=== PATIENT | male | born 1970 | race Caucasian/White ===

== ENCOUNTER → 2017-09-05 | Outpatient (CLI) | payer BC | LOC: FIMAGING 16:13 | PROVIDERS: ATTEND Family Medicine | DX: Z13.83 Encounter for screening for respiratory disorder NEC (principal); L97.529 Non-pressure chronic ulcer of other part of left foot with unspecified severity; F17.200 Nicotine dependence, unspecified, uncomplicated ==

== ENCOUNTER → 2017-09-13 | Outpatient (CLI) | payer BC ==
[~2017-09-13] MED LIST: IOPAMIDOL (ISOVUE 370) 100 ML BTL IV ONE
== END ==
LOC: FIMAGING 15:08
PROVIDERS: ATTEND Surgery
DX: I77.1 Stricture of artery (principal); L97.529 Non-pressure chronic ulcer of other part of left foot with unspecified severity
CPT/HCPCS: Q9967

== ENCOUNTER 2017-09-20 05:53 | Day surgery (SDC) | payer BC ==
[2017-09-20] MEDS ORDERED: DIAZEPAM 5 MG TAB PO ONE (06:05)
[2017-09-20] MEDS ORDERED: FAMOTIDINE 20 MG TAB PO ONE (06:05)
[2017-09-20] MEDS ORDERED: NS 1,000 ML IV ONE (06:05)
[2017-09-20] MEDS ORDERED: ASPIRIN EC 325 MG TAB PO ONE (06:05)
[2017-09-20] MEDS ORDERED: diphenhydrAMINE 25 MG CAP PO ONE (06:05)
--- NOTE | 2017-09-20 06:38 | CPEKG ---
Heart Rate: 73 RR Interval: 822 P-R Interval: 168 QRSD Interval: 76 QT Interval: 396 QTC Interval: 437 P [place]: 31 QRS [place]: 66 T Wave [place]: 67 EKG Severity - NORMAL ECG - EKG Impression: SINUS RHYTHM Electronically Signed By: Herb Meier 21-Sep-2017 08:49:00
[2017-09-20] MEDS ORDERED: CLOPIDOGREL BISULFATE 75 MG TAB PO ONE (06:45)
[2017-09-20 06:52] LABS: PLATELET COUNT 263 10^3/uL (150-400)
[2017-09-20 07:01] LABS: INR 1.03 (0.83-1.16); PROTIME(PATIENT) 13.7 SEC (12.0-15.0)
[2017-09-20] MEDS ORDERED: LIDOCAINE 1% 300 MG/30 ML SDV ONE (07:03)
[2017-09-20] MEDS ORDERED: MIDAZOLAM 2 MG/2 ML VIAL ONE ×3 (07:03→09:18)
[2017-09-20] MEDS ORDERED: fentaNYL 100 MCG/2 ML INJ ONE ×4 (07:03→09:08)
[2017-09-20] MEDS ORDERED: IOPAMIDOL (ISOVUE-300) 150 ML BTL ONE (07:04)
--- NOTE | 2017-09-20 07:11 | PDPROPOC ---
Sedation Plan of Care Sedation Plan of Care: mental status noted, patient educated of risks, benefits , alternatives, patient can tolerate sedation ASA Classification: ASA 2 Planned drugs: fentanyl, midazolam Mallampati Score: Class 2 Mallampati Reference Image: Patient passed 3-3-2 rule?: Yes
--- NOTE | 2017-09-20 07:11 | PDHPUP ---
History & Physical Update H&P update statement: This history and physical update is based on an assessment of the patient which was completed after admission or registration (within 24 hours), but prior to the surgery/procedure. H&P update: H&P reviewed & patient examined, no change in patient's condition since H&P completed
[2017-09-20] MEDS ORDERED: HEPARIN 10,000 UNIT/10 ML MDV (1,000 UNIT/ML) ONE (07:30)
[2017-09-20] MEDS ORDERED: NITROGLYCERIN 1,500 MCG/15 ML VIAL MISC ONE (07:47)
[2017-09-20] MEDS ORDERED: NITROGLYCERIN 0.4 MG BTL SL PRN (09:08)
[2017-09-20] MEDS ORDERED: ATROPINE SULFATE 1 MG/10 ML SYR IVP PRN (09:08)
[2017-09-20] MEDS ORDERED: HYDROCODONE/APAP 5/325 TAB PO PRN (09:08)
[2017-09-20] MEDS ORDERED: OXYCODONE/APAP 5/325 TAB PO PRN (09:08)
[2017-09-20] MEDS ORDERED: ONDANSETRON 4 MG/2 ML VIAL IVP PRN (09:08)
[2017-09-20] MEDS ORDERED: fentaNYL 100 MCG/2 ML INJ IV ONE (09:30)
[2017-09-20] MEDS ORDERED: MIDAZOLAM 2 MG/2 ML VIAL IVP ONE ×2 (09:30)
--- NOTE | 2017-09-20 09:40 | CPIP ---
[f rep st] INVASIVE CARDIAC PROCEDURE DATE OF PROCEDURE: 09/20/2017 INDICATION FOR PROCEDURE: Nonhealing ulceration, left toe. PROCEDURE: 1. Nonselective right groin sheathogram. 2. Abdominal aortogram. 3. Selective catheter placement of left contralateral common femoral artery. 4. Runoff of left lower extremity. 5. Selective angiography of infrapopliteal vessels. 6. Attempted wiring of distal anterior tibial artery AGRICULTURAL PURCHASING AGENT. HISTORY: Briefly, this is a 47-year-old male with history of nonhealing ulceration of the left big t oe. The patient had CTA performed as an outpatient, which showed high-grade infrapopliteal/sub ankle level PAD. Given these findings, patient consented for invasive angiography to see if any increased flow could be increased to the left big toe. DESCRIPTION OF PROCEDURE: After informed consent, the patient was brought to [facility] where the right groin was prepped and draped in a sterile fashion. Using lidocaine, a short 6-Rober nch sheath was introduced into the right common femoral artery. Through the 6-Tunisian sheath, a unive rsal flush catheter was advanced to the descending aorta where abdominal aortogram showed, which show ed patent distal ascending aorta, patent bilateral common external and internal iliac arteries. Univ ersal flush catheter was then advanced to the left common femoral artery. Runoff of the left lower e xtremity was obtained which showed patent left common femoral artery, patent left profunda artery, pa tent left SFA, popliteal artery had 30% disease. Infrapopliteal artery angiography showed patent prox imal anterior tibial artery and peroneal artery. The posterior tibial artery appeared to be subtotal ly occluded from its proximal takeoff and was totally occluded through its entire run to the foot. T he peroneal artery was patent to the level of the ankle, which gave off collaterals, to give off spid er collaterals to both the posterior tibial artery and anterior tibial artery distribution. The anter ior tibial artery appeared to be 100% occluded at the level of the ankle. There did appear to be rec onstitution of this vessel distally which was a quite small vessel, but did appear to be in line with the anterior tibial artery. At this time, a universal flush catheter was removed, a 6-Tunisian sheath was removed. A 6-Tunisian 90 cm sheath was placed in the left popliteal artery and verified angiograp hically. Patient was administered 7000 heparin IV as well as Plavix p.o. Utilizing a Mcelroy ce PT wire and a Quick Cross catheter, the attempts were made to cross this distal AGRICULTURAL PURCHASING AGENT of the anterio r tibial artery at the level of the ankle. This wire was not successful, so was switched out for Con fianza Pro 12 wire which again did traverse slightly further into the level of the ankle in the foref oot with the Quick Cross support. This was then removed for a submersible pilot 150 wire. This did traverse dis tally and entered a distal vessel. However, it appeared that this wire did cross subintimally and th en pop into the true vessel distally by angiography. Given the fact that this wire was in the subint imal plane from the forefoot to the level of the collateralization, we decided that this would not re main patent if any BRAZING MACHINE SETTER was performed. The wire was removed and re-engaged. However, it would not en ter the true lumen to enter this vessel. At this time, we decided given the attempts of trying to op en this extremely distal AGRICULTURAL PURCHASING AGENT as well as the fact the patient does have significant spider collaterals from the peroneal arteries feeding the forefoot that he did have enough circulation at this point in time for any potential distal toe surgery. The catheter and the sheath were pulled back and exchang ed out for a short 6-Tunisian sheath. The patient tolerated the procedure well with no complications. IMPRESSION: High-grade sub ankle peripheral artery disease, mainly in the form of occluded posterior tibial artery and anterior tibial artery getting collateralizations from peroneal spider collaterals at the level of the forefoot to the level of the toes. PLAN: The patient will have the sheath discontinued when the ACT is less than 170. He will be disch arged home later this morning. He will follow up with Dr. Daigle's office. I will communicate with Tom Daigle this morning to relay the message of the patient's findings. /[id number]/MODL
== END 2017-09-20 14:00 | disposition home or self-care (01) ==
LOC: FCATH 05:53
PROVIDERS: ATTEND Internal Medicine Cardiovascular Disease
PROC: B41G1ZZ Fluoroscopy of Left Lower Extremity Arteries using Low Osmolar Contrast (ICD-10-PCS; principal; 2017-09-20)
PROC: 04HN33Z Insertion of Infusion Device into Left Popliteal Artery, Percutaneous Approach (ICD-10-PCS; principal; 2017-09-20)
DX: I74.3 Embolism and thrombosis of arteries of the lower extremities (principal); I73.9 Peripheral vascular disease, unspecified; L97.529 Non-pressure chronic ulcer of other part of left foot with unspecified severity; I10 Essential (primary) hypertension; G89.29 Other chronic pain; F17.210 Nicotine dependence, cigarettes, uncomplicated
CPT/HCPCS: 36247; 75710; 93005; C1769; C1887; J1644; J2250; J3010; Q9967

== ENCOUNTER 2017-10-14 08:07 | Day surgery (SDC) | payer BC ==
[~2017-10-14 08:07] MED LIST changes: +BUPIVACAINE 0.5% 30 ML SDV ONE; -IOPAMIDOL (ISOVUE 370) 100 ML BTL IV ONE; +ceFAZolin 2 GM/DEXTROSE 100 ML IV ONE; +ceFAZolin 2 GM/SWFI 2 GM/20 ML SYR IVP ONE
[2017-10-14] MEDS ORDERED: LR 1,000 ML IV ONE (08:29)
[2017-10-14] MEDS ORDERED: CEFAZOLIN 2 GM/DEXTROSE/100 ML BAG IV ONE (09:02)
--- NOTE | 2017-10-14 09:07 | PDANEPAE ---
ANE History of Present Illness 47 year old male w/ PMHx of PVD s/p Left LE angioplasty presents for left great toe amputation. ANE Past Medical History - Cardiovascular History Hx Hypertension: No Hx Arrhythmias: No Hx Chest Pain: No Hx Coronary Artery / Peripheral Vascular Disease: No Hx CHF / Valvular Disease: No Hx Palpitations: No - Pulmonary History Hx COPD: No Hx Asthma/Reactive Airway Disease: No Hx Recent Upper Respiratory Infection: No Hx Oxygen in Use at Home: No Hx Sleep Apnea: No Sleep Apnea Screening Result - Last Documented: Negative - Neurologic History Hx Cerebrovascular Accident: No Hx Seizures: No Hx Dementia: No - Endocrine History Hx Diabetes: No - Renal History Hx Renal Disorders: No - Liver History Hx Hepatic Disorders: No - Neurological & Psychiatric Hx Hx Neurological and Psychiatric Disorders: No - Cancer History Hx Cancer: No - Congenital Disorder History Hx Congenital Disorders: No - GI History Hx Gastrointestinal Disorders: No - Other Health History Other Health History: none - Chronic Pain History Chronic Pain: Yes (lower back) - Surgical History Prior Surgeries: interventional angioplasty of LLE ANE Review of Systems Review of Systems: - Exercise capacity Exercise capacity: <4 METS METS (RN): 3 METS - Systems Muscolosketal: Reports: other (foot pain / left great toe pain) ANE Patient History - Allergies Allergies/Adverse Reactions: No Known Allergies Allergy (Verified 10/12/17 16:40) - Home Medications Home Medications: Chantix 0.5MG (*) 09/20/17 [Last Taken 09/19/17 18:00] Nifedipine 09/20/17 [Last Taken 09/19/17 19:00] Oxycodone HCl 09/20/17 [Last Taken 09/19/17 18:00] - NPO status NPO Since - Liquids (Date): 10/13/17 NPO Since - Liquids (Time): 22:00 NPO Since - Solids (Date): 10/13/17 NPO Since - Solids (Time): 22:00 - Smoking Hx Smoking Status: Light smoker - Family Anes Hx Family Hx Anesthesia Complications: none ANE Labs/Vital Signs - Vital Signs Blood Pressure: 113/73 Heart Rate: 80 Respiratory Rate: 16 O2 Sat (%): 93 Height: 182.88 cm Weight: 81.647 kg
[2017-10-14] MEDS ORDERED: MIDAZOLAM 2 MG/2 ML VIAL IVP ONE (09:09)
--- NOTE | 2017-10-14 09:09 | PDANEPAE ---
ANE History of Present Illness 47 year old male for left great toe amputation. ANE Past Medical History - Cardiovascular History Hx Hypertension: No Hx Arrhythmias: No Hx Chest Pain: No Hx Coronary Artery / Peripheral Vascular Disease: No Hx CHF / Valvular Disease: No Hx Palpitations: No - Pulmonary History Hx COPD: No Hx Asthma/Reactive Airway Disease: No Hx Recent Upper Respiratory Infection: No Hx Oxygen in Use at Home: No Hx Sleep Apnea: No Sleep Apnea Screening Result - Last Documented: Negative - Neurologic History Hx Cerebrovascular Accident: No Hx Seizures: No Hx Dementia: No - Endocrine History Hx Diabetes: No - Renal History Hx Renal Disorders: No - Liver History Hx Hepatic Disorders: No - Neurological & Psychiatric Hx Hx Neurological and Psychiatric Disorders: No - Cancer History Hx Cancer: No - Congenital Disorder History Hx Congenital Disorders: No - GI History Hx Gastrointestinal Disorders: No - Other Health History Other Health History: none - Chronic Pain History Chronic Pain: Yes (lower back) - Surgical History Prior Surgeries: interventional angioplasty of LLE ANE Review of Systems Review of Systems: - Exercise capacity METS (RN): 3 METS ANE Patient History - Allergies Allergies/Adverse Reactions: No Known Allergies Allergy (Verified 10/12/17 16:40) - Home Medications Home medications: home medication list seen and reviewed Home Medications: Chantix 0.5MG (*) 09/20/17 [Last Taken 09/19/17 18:00] Nifedipine 09/20/17 [Last Taken 09/19/17 19:00] Oxycodone HCl 09/20/17 [Last Taken 09/19/17 18:00] - NPO status NPO Status: no food or drink >8 hours NPO Since - Liquids (Date): 10/13/17 NPO Since - Liquids (Time): 22:00 NPO Since - Solids (Date): 10/13/17 NPO Since - Solids (Time): 22:00 - Anes Hx Anes Hx: no prior problems - Smoking Hx Smoking Status: Light smoker Marijuana use: No - Alcohol Use Alcohol Use: None - Family Anes Hx Family Anes Hx: neg - N/A Family Hx Anesthesia Complications: none ANE Labs/Vital Signs - Vital Signs Vital Signs: reviewed preoperatively; see RN documention for details Blood Pressure: 113/73 Heart Rate: 80 Respiratory Rate: 16 O2 Sat (%): 93 Height: 182.88 cm Weight: 81.647 kg ANE Physical Exam - Airway Neck exam: FROM Mallampati Score: Class 1 Mouth exam: poor dentition, allen Mouth image: 1 - Rotten 2 - Rotten - Pulmonary Pulmonary: no respiratory distress - Cardiovascular Cardiovascular: regular rate and rhythym - ASA Status ASA Status: II ANE Anesthesia Plan Anesthesia Plan: GA w LMA Total IV Anesthesia: No
[2017-10-14] MEDS ORDERED: fentaNYL 100 MCG/2 ML INJ ONE (09:28)
[2017-10-14] MEDS ORDERED: PROPOFOL 200 MG/20 ML VIAL ONE (09:28)
[2017-10-14] MEDS ORDERED: fentaNYL 100 MCG/2 ML INJ IVP PRN (09:59)
[2017-10-14] MEDS ORDERED: ONDANSETRON 4 MG/2 ML VIAL IVP PRN (09:59)
[2017-10-14] MEDS ORDERED: LR 500 ML IV PRN (09:59)
[2017-10-14] MEDS ORDERED: HYDROmorphONE/DILAUDID 2 MG/ML INJ IVP PRN (09:59)
[2017-10-14] MEDS ORDERED: oxyCODONE IR 5 MG TAB PO PRN (09:59)
[2017-10-14] MEDS ORDERED: NALOXONE HCL 0.4 MG/ML INJ IVP PRN (09:59)
--- NOTE | 2017-10-14 10:23 | POSTOPPROG ---
Post Op Note Date of Operation: 10/14/17 Surgeon: Lorenza Daigle Anesthesiologist: wilder Anesthesia: GET(General Endotracheal) Pre-op Diagnosis: ulcer great toe pvd Post-op Diagnosis: same Indication: 47 yo with pvd and ulcer on great toe Procedure: amputation great toe Findings: necrotic toe Inf/Abcess present in the surg proc area at time of surgery?: No EBL: Minimal Specimen(s): toe for micro and path
[2017-10-14 12:36] VITALS: BP 107/68
--- NOTE | 2017-10-14 14:30 | POSTANESTH ---
Post Anesthetic Evaluation Cardiovascular Status: Normal, Stable, Similar to Pre-Op Cond Respiratory Status: Normal, Stable, Similar to Pre-op Cond. Level of Consciousness/Mental Status: Can Participate in Eval, Alert and Oriented Pain Control: Adequate, Prn Tx Ordered Nausea/Vomiting Control: Adequate, Prn Tx Ordered Complications Possibly Related to Anesthesia: None Noted
--- NOTE | 2017-10-15 10:37 | GOP ---
[f rep st] OPERATIVE REPORT DATE OF OPERATION: 10/14/2017 SURGEON: Lorenza Daigle MD ANESTHESIA: General. ANESTHESIOLOGIST: Timo Ames MD PREOPERATIVE DIAGNOSIS: Peripheral vascular disease and ulcer to great toe. POSTOPERATIVE DIAGNOSIS: Peripheral vascular disease and ulcer to great toe. PROCEDURE PERFORMED: Amputation left great toe. FINDINGS: Necrotic ulcer. SPECIMENS: Toe for microbiology and pathology. ESTIMATED BLOOD LOSS: Minimal. INDICATIONS: The patient is a 47-year-old man who developed an ulcer on his great toe. He had colla teral vessels to his foot, but no discrete runoff. He underwent angiography and the blood flow impro oliverio. We discussed about watchful waiting, but due to the pain in the toe, he opted for amputation. DESCRIPTION OF PROCEDURE: The patient was brought into the operating room, placed supine on the tabl e. General anesthesia was administered. His foot was prepped and draped in the usual sterile fashio n. I infiltrated all sites with 0.5% Marcaine prior to making incisions. I made an ellipse around t he ulcer. I disarticulated the distal phalanx and sent this to Pathology. Next, I removed tissue fr om the proximal phalanx and used a periosteal elevator to elevate it from the bone. I submitted a sa mple for microbiology and a final sample for pathology with the ink tiffany proximal. I softened the ed ges with a rasp. I closed the deep layer with 2-0 Vicryl. I closed the skin with 2-0 nylon. A wate rproof silver impregnated dressing was applied. He was then placed in a walking cast. He was awaken ed in the operating room, extubated, transferred to PACU in stable condition. /[id number]/MODL
== END 2017-10-14 12:57 | disposition home or self-care (01) ==
LOC: UNDOADMOB 08:07 → FSGY 08:07 → F3N 08:07 → EDSTATUS 09:45 → FSGY 12:57
PROVIDERS: ATTEND Surgery
PROC: 0Y6Q0Z0 Detachment at Left 1st Toe, Complete, Open Approach (ICD-10-PCS; principal; 2017-10-14 09:45)
DX: L97.529 Non-pressure chronic ulcer of other part of left foot with unspecified severity (principal); I73.9 Peripheral vascular disease, unspecified; G89.29 Other chronic pain; I10 Essential (primary) hypertension; F17.210 Nicotine dependence, cigarettes, uncomplicated
CPT/HCPCS: J0690; J2250; J2704; J3010

== ENCOUNTER → 2018-02-03 | Outpatient (CLI) | payer BC | LOC: FIMAGING 13:16 | PROVIDERS: ATTEND Surgery | DX: Z48.89 Encounter for other specified surgical aftercare (principal); Z89.422 Acquired absence of other left toe(s); M77.32 Calcaneal spur, left foot ==

== ENCOUNTER 2018-05-19 06:41 | Day surgery (SDC) | payer BC ==
[2018-05-19] MEDS ORDERED: ceFAZolin 2 GM/DEXTROSE 100 ML IV ONE (07:01)
[2018-05-19] MEDS ORDERED: LR 1,000 ML IV ONE (07:02)
[2018-05-19] MEDS ORDERED: fentaNYL 100 MCG/2 ML INJ IVP ONE (07:45)
[2018-05-19] MEDS ORDERED: BUPIVACAINE 0.5% 30 ML SDV ONE (08:06)
[2018-05-19] MEDS ORDERED: MIDAZOLAM 2 MG/2 ML VIAL IVP ONE (08:08)
--- NOTE | 2018-05-19 08:08 | PDANEPAE ---
ANE History of Present Illness PVD and gangrenous toes, here for removal of digits in affected foot on L side ANE Past Medical History - Cardiovascular History Hx Hypertension: No Hx Arrhythmias: No Hx Chest Pain: No Hx Coronary Artery / Peripheral Vascular Disease: Yes Hx CHF / Valvular Disease: No Hx Palpitations: No - Pulmonary History Hx COPD: No Hx Asthma/Reactive Airway Disease: No Hx Recent Upper Respiratory Infection: No Hx Oxygen in Use at Home: No Hx Sleep Apnea: No Sleep Apnea Screening Result - Last Documented: Negative Pulmonary History Comment: pt quit smoking @ 2 mths ago - Neurologic History Hx Cerebrovascular Accident: No Hx Seizures: No Hx Dementia: No - Endocrine History Hx Diabetes: No - Renal History Hx Renal Disorders: No - Liver History Hx Hepatic Disorders: No - Neurological & Psychiatric Hx Hx Neurological and Psychiatric Disorders: No - Cancer History Hx Cancer: No - Congenital Disorder History Hx Congenital Disorders: No - GI History Hx Gastrointestinal Disorders: No - Other Health History Other Health History: left toe not healing appropriately - Chronic Pain History Chronic Pain: Yes (lower back) - Surgical History Prior Surgeries: interventional angioplasty of LLE. 1 toe amputated 2017 ANE Review of Systems Review of Systems: - Exercise capacity METS (RN): 4 METS ANE Patient History - Allergies Allergies/Adverse Reactions: No Known Allergies Allergy (Verified 05/17/18 14:47) - Home Medications Home Medications: oxyCODONE IR [Oxycodone Ir (*)] 20 mg PO Q4-6PRN PRN #0 09/20/17 [Last Taken ] - NPO status NPO Since - Liquids (Date): 05/18/18 NPO Since - Liquids (Time): 23:00 NPO Since - Solids (Date): 05/18/18 NPO Since - Solids (Time): 23:00 - Smoking Hx Smoking Status: Light smoker - Family Anes Hx Family Hx Anesthesia Complications: none ANE Labs/Vital Signs - Vital Signs Blood Pressure: 128/83 Heart Rate: 99 Respiratory Rate: 18 O2 Sat (%): 95 Height: 182.88 cm Weight: 81.647 kg ANE Physical Exam - Airway Neck exam: FROM Mallampati Score: Class 1 Mouth exam: poor dentition - Pulmonary Pulmonary: no respiratory distress - Cardiovascular Cardiovascular: regular rate and rhythym - ASA Status ASA Status: II ANE Anesthesia Plan Anesthesia Plan: GA w LMA, GA with mask Total IV Anesthesia: Yes
[2018-05-19] MEDS ORDERED: MIDAZOLAM 2 MG/2 ML VIAL ONE ×2 (08:09→08:24)
[2018-05-19] MEDS ORDERED: LIDOCAINE 2% 5 ML SDV ONE (08:12)
[2018-05-19] MEDS ORDERED: fentaNYL 100 MCG/2 ML INJ ONE ×4 (08:12→09:51)
[2018-05-19] MEDS ORDERED: PROPOFOL/EMULSION 500 MG/50 ML BOTTLE IV ONE (08:12)
[2018-05-19] MEDS ORDERED: LIDOCAINE 1% 300 MG/30 ML SDV ONE (08:25)
[2018-05-19] MEDS ORDERED: ROPIVACAINE HCL 150 MG/30 ML INJ ONE (08:50)
[2018-05-19] MEDS ORDERED: LABETALOL HCL 5 MG/ML 20 ML MDV IVP PRN (08:54)
[2018-05-19] MEDS ORDERED: oxyCODONE IR 5 MG TAB PO ONE (08:54)
[2018-05-19] MEDS ORDERED: NALOXONE HCL 0.4 MG/ML INJ IVP PRN ×2 (08:54→10:09)
[2018-05-19] MEDS ORDERED: MEPERIDINE 25 MG/0.5 ML AMP IVP PRN (08:54)
[2018-05-19] MEDS ORDERED: ONDANSETRON 4 MG/2 ML VIAL IVP PRN ×2 (08:54→10:05)
[2018-05-19] MEDS ORDERED: DEXAMETHASONE 4 MG/ML VIAL IVP PRN (08:54)
--- NOTE | 2018-05-19 09:15 | POSTOPPROG ---
Post Op Note Date of Operation: 05/19/18 Surgeon: Lorenza Daigle Peeled Potato Inspector: Melinda Anesthesiologist: nena Anesthesia: GET(General Endotracheal) Pre-op Diagnosis: osteomyelitis, PVD Post-op Diagnosis: same Indication: 47yo M s/p L 1st toe amputation with nonhealing wound, osteo, and PVD Procedure: L TMA Findings: diminished blood supply Inf/Abcess present in the surg proc area at time of surgery?: Yes Depth: Organ Space (bone) EBL: Minimal Specimen(s): L forefoot -permanent L proximal metatarsal - micro
[2018-05-19] MEDS ORDERED: oxyCODONE IR 5 MG TAB ONE (09:36)
[2018-05-19] MEDS: fentaNYL 100 MCG/2 ML INJ IVP PRN ×4 (09:39→10:01)
--- NOTE | 2018-05-19 09:41 | GOP ---
DATE OF OPERATION: 05/19/2018 SURGEON: Lorenza Daigle MD HIGH SCHOOL ASSISTANT FOOTBALL COACH: Judy Lawrence, PAIGE ANESTHESIA: General with postoperative ankle block. ANESTHESIOLOGIST: Jamir Faria DO PREOPERATIVE DIAGNOSIS: Left great toe osteomyelitis and peripheral vascular disease. POSTOPERATIVE DIAGNOSIS: Left great toe osteomyelitis and peripheral vascular disease. PROCEDURE PERFORMED: Left transmetatarsal amputation. FINDINGS: bone exposed on great toe. digital arteries patent SPECIMENS: Left forefoot and left great toe for microbiology. ESTIMATED BLOOD LOSS: 20 cc. INDICATIONS: The patient is a 47-year-old man who has peripheral vascular disease. He had an angiogram performed to open up the blood vessels to his foot. We attempted an amputation of the great toe. He had poor wound healing and the bone became exposed. He continues to have pain. His foot has demarcated somewhat. He has a dopplerable posterior tibial pulse and anterior tibial as well as a dorsalis pedis. DESCRIPTION OF PROCEDURE: The patient was brought into the operating room, placed supine on the table, and general anesthesia was administered. His left foot was prepped and draped in the usual sterile fashion. I made an incision over the dorsum of his foot and extended this posterior in order to create a flap. I dissected down through the skin and subcutaneous tissues. I performed electrocautery for hemostasis on the interdigital arteries. I used a periosteal elevator to elevate the soft tissues away from the bone. I used a saw to transect the forefoot. This was submitted to Pathology. I then took a second specimen for microbiology of the 1st metatarsal. The posterior flap was viable with healthy tissue. I then closed the flap and sutured it closed with 2 -0 Vicryl. Skin closed with 2-0 nylon and 3-0 nylon, a silver Mepilex dressing applied. A postoperative ankle block was performed. He was awakened in the operating room, extubated, transferred to PACU in stable condition. /[id number]/MODL MTDD
--- NOTE | 2018-05-19 09:42 | POSTANESTH ---
Post Anesthetic Evaluation Cardiovascular Status: Normal, Stable Respiratory Status: Normal, Stable Level of Consciousness/Mental Status: Can Participate in Eval, Mildly Sleepy, Arousable Pain Control: Adequate, Prn Tx Ordered Nausea/Vomiting Control: Adequate, Prn Tx Ordered Complications Possibly Related to Anesthesia: None Noted
[2018-05-19] MEDS ORDERED: HYDROmorphONE/DILAUDID 4 MG TAB PO PRN (10:04)
[2018-05-19] MEDS ORDERED: HYDROmorphONE/DILAUDID 2 MG/ML INJ ONE ×2 (10:09→11:28)
[2018-05-19] MEDS: HYDROmorphONE/DILAUDID 2 MG/ML INJ IVP PRN ×4 (10:11→10:57)
[2018-05-19] MEDS ORDERED: oxyCODONE IR 5 MG TAB PO PRN (10:34)
[2018-05-19] MEDS ORDERED: HYDROmorphONE/DILAUDID 2 MG TAB ONE (11:33)
[2018-05-19] MEDS ORDERED: KETOROLAC 15 MG/1 ML SDV IVP SCH (12:00)
[2018-05-19] MEDS ORDERED: HYDROmorphONE/DILAUDID 2 MG TAB PO ONE (12:00)
[2018-05-19 14:34] VITALS: BP 134/92
== END 2018-05-19 14:30 | disposition home or self-care (01) ==
LOC: F3N 06:41 → UNDOADMOB 06:41 → FSGY 06:41 → EDSTATUS 08:30 → UNDODISOB 14:30 → FSGY 14:30
PROVIDERS: ATTEND Surgery
DX: M86.072 Acute hematogenous osteomyelitis, left ankle and foot (principal); L97.526 Non-pressure chronic ulcer of other part of left foot with bone involvement without evidence of necrosis; I73.9 Peripheral vascular disease, unspecified; G89.29 Other chronic pain; I10 Essential (primary) hypertension; Z87.891 Personal history of nicotine dependence; Z89.422 Acquired absence of other left toe(s)
CPT/HCPCS: J0690; J1170; J2250; J2704; J2795; J3010

== ENCOUNTER → 2018-08-16 | Outpatient (CLI) | payer BC ==
[~2018-08-16] MED LIST changes: +IOPAMIDOL (ISOVUE-370) 150 ML BTL IV ONE; +IOTHALAMATE MEG (CONRAY) 50 ML VIAL IV ONE; +THROMBIN (BOVINE) 20,000 UNIT SPRAY TP ONE; -ceFAZolin 2 GM/DEXTROSE 100 ML IV ONE; -ceFAZolin 2 GM/SWFI 2 GM/20 ML SYR IVP ONE
== END ==
LOC: FIMAGING 06:43
PROVIDERS: ATTEND Surgery
DX: I70.203 Unspecified atherosclerosis of native arteries of extremities, bilateral legs (principal); I73.9 Peripheral vascular disease, unspecified; M79.672 Pain in left foot; Z89.429 Acquired absence of other toe(s), unspecified side
CPT/HCPCS: J1644; Q9961; Q9967

== ENCOUNTER 2018-08-18 09:07 | Inpatient (IN) | payer BC ==
[2018-08-18] MEDS ORDERED: ceFAZolin 2 GM/DEXTROSE 100 ML IV ONE (09:27)
[2018-08-18] MEDS ORDERED: LR 1,000 ML IV ONE (09:28)
[2018-08-18] MEDS ORDERED: oxyCODONE IR 5 MG TAB PO PRN ×2 (09:53→13:52)
[2018-08-18] MEDS ORDERED: ERTAPENEM 1 GM VIAL ONE (10:20)
--- NOTE | 2018-08-18 10:20 | PDANEPAE ---
ANE History of Present Illness L femoral popliteal graft ANE Past Medical History - Cardiovascular History Hx Hypertension: No Hx Arrhythmias: No Hx Chest Pain: No Hx Coronary Artery / Peripheral Vascular Disease: Yes Hx CHF / Valvular Disease: No Hx Palpitations: No - Pulmonary History Hx COPD: No Hx Asthma/Reactive Airway Disease: No Hx Recent Upper Respiratory Infection: No Hx Oxygen in Use at Home: No Hx Sleep Apnea: No Sleep Apnea Screening Result - Last Documented: Negative Pulmonary History Comment: pt quit smoking 02/2018 - Neurologic History Hx Cerebrovascular Accident: No Hx Seizures: No Hx Dementia: No - Endocrine History Hx Diabetes: No - Renal History Hx Renal Disorders: No - Liver History Hx Hepatic Disorders: No - Neurological & Psychiatric Hx Hx Neurological and Psychiatric Disorders: No - Cancer History Hx Cancer: No - Congenital Disorder History Hx Congenital Disorders: No - GI History Hx Gastrointestinal Disorders: No - Other Health History Other Health History: DDD - Chronic Pain History Chronic Pain: Yes (DDD/lower back) - Surgical History Prior Surgeries: LT GREAT TOE METATARSAL AMPUTATION 05/19/18. interventional angioplasty of LLE 09/20/2017. 1 toe amputated 2017 ANE Review of Systems Review of systems is: negative Review of Systems: - Exercise capacity METS (RN): 3 METS ANE Patient History - Allergies Allergies/Adverse Reactions: No Known Allergies Allergy (Verified 05/17/18 14:47) - Home Medications Home medications: home medication list seen and reviewed Home Medications: oxyCODONE IR [Oxycodone Ir (*)] 20 mg PO Q4-6PRN PRN #0 09/20/17 [Last Taken 07:00 20mg] - NPO status NPO Status: no food or drink >8 hours NPO Since - Liquids (Date): 08/18/18 NPO Since - Liquids (Time): 03:00 NPO Since - Solids (Date): 08/17/18 NPO Since - Solids (Time): 23:00 - Anes Hx Anes Hx: no prior problems - Smoking Hx Smoking Status: Former smoker - Family Anes Hx Family Anes Hx: none Family Hx Anesthesia Complications: none ANE Labs/Vital Signs - Labs Result Diagrams: 08/18/18 09:58 08/18/18 09:58 - Vital Signs Vital Signs: reviewed preoperatively; see RN documention for details Blood Pressure: 125/87 Heart Rate: 113 Respiratory Rate: 16 O2 Sat (%): 94 Height: 182.88 cm Weight: 76.204 kg ANE Physical Exam - Airway Neck exam: FROM Mallampati Score: Class 1 Mouth exam: poor dentition - Pulmonary Pulmonary: no respiratory distress - Cardiovascular Cardiovascular: regular rate and rhythym - ASA Status ASA Status: III ANE Anesthesia Plan Anesthesia Plan: general endotracheal anesthesia Lines/Monitors: arterial line
[2018-08-18 10:27] LABS: PLATELET COUNT 344 10^3/uL (150-400)
[2018-08-18] MEDS ORDERED: fentaNYL 250 MCG/5 ML INJ ONE (10:31)
[2018-08-18] MEDS ORDERED: PROPOFOL 200 MG/20 ML VIAL ONE (10:31)
[2018-08-18] MEDS ORDERED: LIDOCAINE 2% 100 MG/5 ML SYR ONE (10:31)
[2018-08-18] MEDS ORDERED: DEXAMETHASONE 4 MG/ML VIAL ONE (10:31)
[2018-08-18] MEDS ORDERED: ONDANSETRON 4 MG/2 ML VIAL ONE (10:31)
[2018-08-18] MEDS ORDERED: ROCURONIUM 50 MG/5 ML VIAL ONE (10:31)
[2018-08-18] MEDS ORDERED: PHENYLEPHRINE HCL 100 MCG/ML SYR ONE (10:39)
[2018-08-18] MEDS: ERTAPENEM 1 GM in NS 100 ML IV SCH (10:53)
[2018-08-18] MEDS ORDERED: HEPARIN 10,000 UNIT/10 ML MDV (1,000 UNIT/ML) ONE (12:01)
[2018-08-18] MEDS ORDERED: PROTAMINE SULFATE 50 MG/5 ML VIAL IVP ONE ×2 (13:18→15:03)
[2018-08-18] MEDS ORDERED: NALOXONE HCL 0.4 MG/ML INJ IVP PRN ×2 (13:52→14:44)
[2018-08-18] MEDS ORDERED: MEPERIDINE 25 MG/0.5 ML AMP IVP PRN (13:52)
[2018-08-18] MEDS ORDERED: PROMETHAZINE HCL 25 MG/ML INJ IVP PRN (13:52)
[2018-08-18] MEDS ORDERED: ONDANSETRON 4 MG/2 ML VIAL IVP PRN ×2 (13:52→14:49)
[2018-08-18] MEDS ORDERED: fentaNYL 100 MCG/2 ML INJ IVP PRN (13:52)
[2018-08-18] MEDS ORDERED: HYDROCODONE/APAP 5/325 TAB PO PRN (13:52)
[2018-08-18] MEDS ORDERED: DEXAMETHASONE 4 MG/ML VIAL IVP PRN (13:52)
[2018-08-18] MEDS ORDERED: LABETALOL HCL 5 MG/ML 20 ML MDV IVP PRN (13:52)
--- NOTE | 2018-08-18 13:53 | POSTANESTH ---
Post Anesthetic Evaluation Cardiovascular Status: Similar to Pre-Op Cond Respiratory Status: Similar to Pre-op Cond. Level of Consciousness/Mental Status: Can Participate in Eval, Mildly Sleepy, Arousable Pain Control: Adequate, Prn Tx Ordered Nausea/Vomiting Control: Adequate, Prn Tx Ordered Complications Possibly Related to Anesthesia: None Noted
--- NOTE | 2018-08-18 14:44 | POSTOPPROG ---
Post Op Note Date of Operation: 08/18/18 Surgeon: Jose Hallman (s) Private Duty Lpn: Jennifer Anesthesiologist: Preethi Anesthesia: GET(General Endotracheal) Pre-op Diagnosis: PVD Post-op Diagnosis: same Indication: same, nonhealing wound Procedure: L fem-pop bypass graft, L saphenous vein harvest, debridement/ osteotomy patria Findings: +graft pulse. Healthy bleeding after TMA debridement Inf/Abcess present in the surg proc area at time of surgery?: Yes Depth: Deep Incisional (Fascial) EBL: 50-100 Drains: Wound Vac Specimen(s): Left foot bone- culture and path
[2018-08-18] MEDS ORDERED: HYDROmorphONE/DILAUDID 2 MG/ML INJ ONE (14:45)
[2018-08-18] MEDS ORDERED: ONDANSETRON DISINTEGRATING 4 MG TAB PO PRN (14:49)
[2018-08-18] MEDS: HYDROmorphONE/DILAUDID 2 MG/ML INJ IVP PRN ×4 (14:50→15:12)
[2018-08-18] MEDS ORDERED: BUPIVACAINE 0.5% 30 ML SDV ONE (14:51)
[2018-08-18] MEDS ORDERED: fentaNYL 100 MCG/2 ML INJ ONE (14:52)
[2018-08-18] MEDS ORDERED: THROMBIN (BOVINE) 20,000 UNIT SPRAY TP ONE (15:07)
[2018-08-18 15:18] LABS: PLATELET COUNT 297 10^3/uL (150-400)
[2018-08-18] MEDS: oxyCODONE IR 5 MG TAB PO PRN ×2 (15:25→22:04)
[2018-08-18] MEDS: HYDROmorphONE/DILAUDID 6 MG/30 ML PCA IV PRN (15:42)
--- NOTE | 2018-08-18 16:13 | PDMN ---
Medical Necessity Medical necessity: [facility] [place] [facility] [place] S480 femoral popliteal bypass 2 days: [facility] INPT only : OP: L fem-pop bypass graft, L saphenous vein harvest, debridement/ osteotomy foot -- CPT 58306 ref [id number]
[2018-08-19] MEDS: oxyCODONE IR 5 MG TAB PO PRN ×4 (03:29→19:58)
[2018-08-19] MEDS: HYDROmorphONE/DILAUDID 6 MG/30 ML PCA IV PRN ×2 (03:34→17:34)
--- NOTE | 2018-08-19 08:36 | SOAPPROG ---
SOAP Progress Note Assessment/Plan: Assessment: 48yo M POD#1 s/p L fem-pop - VSS, HDs - pain is controlled - leg is warm signals are good, VAC to stump site - TDWB to LLE through the weekend, no bending at knee - ASA - MS status ok Plan: 08/19/18 08:35 Subjective: feels well, pain controlled Objective: Vital Signs Temp Pulse Resp BP Pulse Ox 36.9 C 71 17 104/65 94 08/19/18 06:00 08/19/18 06:00 08/19/18 06:00 08/19/18 06:00 08/19/18 06:00 Microbiology 08/18/18 14:31 Gram Stain - Final Foot - Bone Laboratory Results 08/19/18 04:20 08/19/18 04:20 08/18/18 08/19/18 08/20/18 05:59 05:59 05:59 Intake Total 1928.7 Output Total 2350 Balance -421.3 ICD10 Worksheet Patient Problems: Problems Problem Status Onset Popliteal thrombosis Acute - ICD10 Problem Qualifiers (1) Popliteal thrombosis
[2018-08-19] MEDS: ASPIRIN 81 MG CHEWABLE TAB PO SCH (08:57)
--- NOTE | 2018-08-19 09:47 | ASMTCMCOM ---
CM Note CM Note Notes: Pt admitted to hospital for a scheduled femoral popiteal bypass with wound vac placement. He has a hx of left toe and transmetatarsal foot amputation. DC needs uncertain, CM w/f. DC Plan: TBD Date Signed: 08/19/2018 09:46 AM Electronically Signed By:Melodie Ling RN
--- NOTE | 2018-08-19 10:00 | GOP ---
[f rep st] OPERATIVE REPORT DATE OF OPERATION: 08/18/2018 SURGEON: Jose Hallman MD DIRECTOR STAFFING: Eli Rodriguez NP. ANESTHESIOLOGIST: Dr. Oro. PREOPERATIVE DIAGNOSIS: Gangrene of the left foot. POSTOPERATIVE DIAGNOSIS: Gangrene of the left foot. PROCEDURE PERFORMED: left leg ultrasound vein mapping/ Left femoropopliteal bypass with reverse saphenous vein graft. FINDINGS: Patient was found to have reasonably soft vessels above and below the popliteal artery. DESCRIPTION OF PROCEDURE: Patient taken to the operating room where he received a satisfactory general endotracheal anesthesia by Dr. Oro. He was placed in the supine position, prepped and draped in the usual sterile fashion. An incision was made on the medial thigh and over Ryan canal and dissection extended down through subcutaneous tissue and the fascia at Ryan canal was opened, and the superficial femoral artery was dissected free and controlled with vessel loops. A second incision was made in the popliteal space in the medial aspect of the lower leg. Dissection extended down into the popliteal space and popliteal artery. That area was dissected free and controlled with vessel loops. After adequate exposure was obtained, the saphenous vein was identified with ultrasound and dissected free for a long segment in the medial aspect of the thigh. Vein was repaired. Multiple tributaries were ligated or Hemoclipped until the graft was quite ready for use. Anastomosis was then made in an end-to-side manner using running 6-0 Prolene suture, securing the vein graft to the side of the popliteal artery. The graft was then passed in the tonawanda canal up to Ryan canal where another end-to-side anastomosis was made with a running 6-0 Prolene suture to the SFA. All vessels were flushed prior to completion of the suture line. Flow was first re-established through the tonawanda artery and then through the bypass graft. Excellent pulse was obtained in the bypass graft and distally. The wounds were irrigated. Hemostasis was assured. Heparin was reversed with protamine. It should be noted the patient had been systemically heparinized prior to occlusion of the vessels. After good hemostasis, all wounds were closed with 2-0 Vicryl for the fascia, 3-0 Vicryl for the subcu, and skin juanita for the skin. The saphenous vein harvesting incision was closed with 2- 0 Vicryl for the subcu and skin juanita for the skin. All wounds were infiltrated with Marcaine. He tolerated the procedure well, taken to recovery room in good condition. There were no complications. Blood loss from that procedure was less than 100 cc. ADDENDUM TO PROCEDURE: Ultrasound vein mapping of the left leg. /[id number]/MODL MTDD
--- NOTE | 2018-08-19 10:10 | GOP ---
[f rep st] OPERATIVE REPORT DATE OF OPERATION: 08/18/2018 SURGEON: Jose Hallman MD CP BLEACHER OPERATOR: Eli Rodriguez, nurse practitioner. ANESTHESIOLOGIST: Dr. Oro. PREOPERATIVE DIAGNOSIS: Gangrene of the left foot. POSTOPERATIVE DIAGNOSIS: PROCEDURE PERFORMED: Debridement and revision of a transmetatarsal amputation./ wound VAC placement FINDINGS: Patient was found to have a marked amount of gangrenous tissue on the posterior flap of the previous transmetatarsal amputation. ESTIMATED BLOOD LOSS: Less than 25 cc. DESCRIPTION OF PROCEDURE: Patient taken to the operating room under general endotracheal anesthesia by Dr. Oro. He was prepped and draped in the usual sterile fashion. Sharp excision was done of all the gangrenous, tissue down to bleeding viable tissue at the proximal metatarsal and midfoot area. Using power saw, the exposed bone was trimmed back. Hemostasis was obtained with electrocautery and some topical thrombin. The wound was then dressed with a wound VAC. He tolerated procedure well. COMPLICATIONS: There were no complications. /[id number]/MODL MTDD
[2018-08-19] MEDS: ENOXAPARIN 40 MG/0.4 ML SYR SC SCH (10:47)
[2018-08-19] MEDS: ERTAPENEM 1 GM in NS 100 ML IV SCH (11:01)
[2018-08-20] MEDS: oxyCODONE IR 5 MG TAB PO PRN ×4 (05:04→17:32)
[2018-08-20] MEDS: HYDROmorphONE/DILAUDID 6 MG/30 ML PCA IV PRN ×2 (05:56→17:17)
[2018-08-20] MEDS: ASPIRIN 81 MG CHEWABLE TAB PO SCH (08:42)
[2018-08-20] MEDS: ENOXAPARIN 40 MG/0.4 ML SYR SC SCH (08:42)
[2018-08-20] MEDS: ERTAPENEM 1 GM in NS 100 ML IV SCH (08:42)
--- NOTE | 2018-08-20 08:50 | SOAPPROG ---
SOAP Progress Note Assessment/Plan: Assessment: 48yo M POD#2 s/p L fem-pop - VSS, HDs - pain is controlled - leg is warm, VAC in place - tried to touch down yesterday and could not 2/2 pain, will attempt again today - VAC change tomorrow, limit bending at knee Plan: 08/19/18 08:35 08/20/18 08:49 Subjective: pain controlled Objective: Vital Signs Temp Pulse Resp BP Pulse Ox 36.7 C 81 16 104/68 96 08/20/18 08:21 08/20/18 08:21 08/20/18 08:21 08/20/18 08:21 08/20/18 08:21 Microbiology 08/18/18 14:31 Gram Stain - Final Foot - Bone Laboratory Results 08/19/18 04:20 08/19/18 04:20 08/19/18 08/20/18 08/21/18 05:59 05:59 05:59 Intake Total 1928.7 1108 Output Total 8112 4587 Balance -421.3 -1367 ICD10 Worksheet Patient Problems: Problems Problem Status Onset Popliteal thrombosis Acute - ICD10 Problem Qualifiers (1) Popliteal thrombosis
--- NOTE | 2018-08-20 15:16 | ASMTCMCOM ---
CM Note CM Note Notes: Spoke with pt in the room. PT is recommending SNF on discharge and pt is agreeable. Referral sent to [facility] as pt lives nearby in [place]. CM to follow. D/C Plan: [facility] pending acceptance Date Signed: 08/20/2018 03:16 PM Electronically Signed By:Gillian Gutierrez
[2018-08-21] MEDS: oxyCODONE IR 5 MG TAB PO PRN ×4 (04:40→19:13)
--- NOTE | 2018-08-21 08:09 | SOAPPROG ---
SOAP Progress Note Assessment/Plan: Assessment/plan: 48 y/o M s/p L fem-pop POD #3 Wound vac had clot in tubing last night. RN tried to turn vac back on, but pt had severe pain. Still in place. Change canister and attach to 75mmHg suction. Vac change today. Get oob with PT/OT. Continue baby asa. S: Pain in foot and along incisions. O: Alert Afebrile RRR No increased WOB Abdomen soft LLE: incisions well dressed. Pedal pulses not palpable. Wound vac in place. Foot warm. 08/21/18 08:05 Objective: Vital Signs Temp Pulse Resp BP Pulse Ox 36.8 C 80 18 103/54 L 93 08/21/18 07:44 08/21/18 07:44 08/21/18 07:44 08/21/18 07:44 08/21/18 07:44 Microbiology 08/18/18 14:31 Gram Stain - Final Foot - Bone Laboratory Results 08/19/18 04:20 08/19/18 04:20 08/20/18 08/21/18 08/22/18 05:59 05:59 05:59 Intake Total 1108 400 Output Total 3856 1600 Balance -1367 -1200 ICD10 Worksheet Patient Problems: Problems Problem Status Onset Popliteal thrombosis Acute
[2018-08-21] MEDS: HYDROmorphONE/DILAUDID 6 MG/30 ML PCA IV PRN ×2 (09:09→21:04)
[2018-08-21] MEDS: ASPIRIN 81 MG CHEWABLE TAB PO SCH (09:15)
[2018-08-21] MEDS: ENOXAPARIN 40 MG/0.4 ML SYR SC SCH (09:16)
[2018-08-21] MEDS: ERTAPENEM 1 GM in NS 100 ML IV SCH (09:16)
[2018-08-21] MEDS ORDERED: LIDOCAINE HCL 4% TOPICAL SOLN 50ML MM ONE (11:04)
--- NOTE | 2018-08-21 12:53 | WOCRNPDOC ---
WOCRN Advanced Assessment Note - Skin Integrity Problem, Advanced Assess Left Lower Foot Surgical Wound/Incision Dressing Type: Black Vac Foam (x1), White Vac Foam (x1), Wound Vac Dressing Description: Clean/Dry, Intact Exudate Amount: Minimal Exudate Characteristic(s): Sanguinous Integumentary Issue Intervention: Dressing Changed, Silver Nitrate Application ( x1) Wound Bed Constitution: Smooth Tissue (95%), Bone, Muscle, Subcutaneous Fat, Adhered Slough (5%) Wound Edges: Attached, Well Defined Skin Integrity Problem Comment: Machine was turned off when wound care rounded on patient. Patient in a significant amount of pain likely from the fluctuations in the suction (vac working and not working properly) over the course of the past few hours. Has been using [employer] appropriately. Discussed that wound vac would probably be less painful than a wet to dry dressing that was the other option that was discussed with him. 4% liquid lidocaine topically administered to wound bed prior to vac dressing removal and after foam removal. Small oozing capillary cauterized with silver nitrate. Celia wound skin somewhat macerated from vac dressing being left on without suction. Mastisol applied to celia wound skin and drape. One piece of small white foam placed over wound bed. Covered with 4 pieces of black foam. Suction restarted at -125 mm Hg continuous suction wihtout any leaks noted. Patient tolerated the vac change fairly well. May benefit from Ativan prior to next vac change along with both IV pain medication and topical lidocaine. Clyde and Tonia RN's in room for vac change. Next vac change due Wed.
--- NOTE | 2018-08-21 16:11 | ASMTCMCOM ---
CM Note CM Note Notes: Spoke with pt and with Gilmar from [facility]. Pt has been accepted and will need to pay the remaining $875 from "out of pocket maximum" since his [place] of [place] and all SNFs in [place] are out of network. Pt is agreeable. Pt also understands [facility] has no-smoking policy and pt states he quit smoking several months ago. Discharge date TBD. CM to follow. D/C Plan: [facility] SNF Date Signed: 08/21/2018 04:11 PM Electronically Signed By:Gillian Gutierrez
[2018-08-22] MEDS: oxyCODONE IR 5 MG TAB PO PRN ×2 (04:57→12:13)
[2018-08-22] MEDS: ERTAPENEM 1 GM in NS 100 ML IV SCH (09:39)
[2018-08-22] MEDS: ENOXAPARIN 40 MG/0.4 ML SYR SC SCH (09:39)
[2018-08-22] MEDS: ASPIRIN 81 MG CHEWABLE TAB PO SCH (09:40)
[2018-08-22] MEDS: HYDROmorphONE/DILAUDID 6 MG/30 ML PCA IV PRN (12:49)
--- NOTE | 2018-08-22 13:03 | SOAPPROG ---
SOAP Progress Note Assessment/Plan: Assessment/Plan: 48 y/o M s/p L fem-pop, L TMA debridement c vac placement, POD #4. Graft patent. Vac to good suction. Pain under better control this am. Plan for vac change tomorrow. If TMA wound looks good, consider STSG c vac replacement in next few days. If needs more time to granulate and prepare to receive graft, then would d/c with wound vac and follow up in office for wound checks and graft planning. Dispo: pending. Will likely eventually need SNF regardless of d/c timing. Seen c Dr. Hallman. S: more comfortable. O: alert, nad mmm no wob rrr abd soft wounds well dressed vac to good suction 08/22/18 13:00 Objective: Vital Signs Temp Pulse Resp BP Pulse Ox 36.8 C 68 16 87/51 L 94 08/22/18 11:59 08/22/18 11:59 08/22/18 11:59 08/22/18 11:59 08/22/18 11:59 Microbiology 08/18/18 14:31 Gram Stain - Final Foot - Bone Laboratory Results 08/19/18 04:20 08/19/18 04:20 08/21/18 08/22/18 08/23/18 05:59 05:59 05:59 Intake Total 400 475 Output Total 1600 1000 Balance -1200 -525 ICD10 Worksheet Patient Problems: Problems Problem Status Onset Popliteal thrombosis Acute
--- NOTE | 2018-08-22 14:16 | ASMTCMCOM ---
CM Note CM Note Notes: CORRECTION: [facility] accepted pt pending authorization from BC/BS which was filed today. CM to follow. D/C Plan: [facility] pending auth Date Signed: 08/22/2018 02:15 PM Electronically Signed By:Gillian Gutierrez
[2018-08-23] MEDS: oxyCODONE IR 5 MG TAB PO PRN ×3 (00:59→12:29)
[2018-08-23] MEDS: HYDROmorphONE/DILAUDID 6 MG/30 ML PCA IV PRN (05:25)
[2018-08-23] MEDS: ENOXAPARIN 40 MG/0.4 ML SYR SC SCH (09:54)
[2018-08-23] MEDS: ASPIRIN 81 MG CHEWABLE TAB PO SCH (09:54)
[2018-08-23] MEDS: ERTAPENEM 1 GM in NS 100 ML IV SCH (09:55)
[2018-08-23 11:47] VITALS: BP 82/44
--- NOTE | 2018-08-23 12:04 | SOAPPROG ---
SOAP Progress Note Assessment/Plan: Assessment/plan: 48 y/o M s/p L fem-pop Wound vac over TMA site. Vac change today prior to d/c. D/c ertapenem and start oral Bactrim. D/c Mcrae. Pain is well controlled. 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 Has prn oxycodone ordered. Dispo: d/c to SNF today. Plan for vac change MWF. Pt will follow up in our office in one week for wound check. Will need skin graft as outpt. Discussed that he will need to be on bedrest for 5 days following surgery. S: Discussed having additional surgery this week for skin graft to TMA site. Pt would like to be d/c'ed to SNF with wound vac and schedule STSG as an outpt. O: Alert Afebrile RRR No increased WOB Abdomen soft LLE: incisions cdi with juanita intact. Graft patent. Wound vac in place. Foot warm. 08/23/18 11:59 Objective: Vital Signs Temp Pulse Resp BP Pulse Ox 36.7 C 71 16 82/44 L 95 08/23/18 11:46 08/23/18 11:46 08/23/18 11:46 08/23/18 11:46 08/23/18 11:46 Microbiology 08/18/18 14:31 Gram Stain - Final Foot - Bone Laboratory Results 08/19/18 04:20 08/19/18 04:20 08/22/18 08/23/18 08/24/18 05:59 05:59 05:59 Intake Total 475 0135 Output Total 1000 2100 Balance -525 -245 ICD10 Worksheet Patient Problems: Problems Problem Status Onset Popliteal thrombosis Acute
--- NOTE | 2018-08-23 12:05 | PDIAF ---
- Diagnosis Code Status: Full Code - Medication Management Discharge Medications: electronically signed and located in the Home Medication List. PICC Care - Routine: N/A - Orders Services needed: Registered Nurse, Physical Therapy, Occupational Therapy Isolation Type: None Diet Recommendation: no restrictions on diet Diet Texture: Regular Texture Diet Additional Instructions: Please change wound vac every Tuesday, Tuesday, and Tuesday. Use white foam followed by black foam. AVOID BENDING AT THE KNEE! Call to make an appointment for Tuesday of next week. Ok to keep thigh incisions open to air. Call with fever, chills or worsening pain. - Follow Up Care Current Providers and Referrals: Jose Hallman MD [Medical Doctor] - 08/30/18 Allen Simons [Primary Care Provider] -
--- NOTE | 2018-08-23 12:27 | ASMTLACE ---
LACE Length of stay for Answers: 4-6 days current admission Acuity / Level of Answers: Yes Care: Did the patient have an inpatient admission? Comorbidities - select Answers: Opioid dependence all that apply / Chronic pain Peripheral vascular disease Score: 12 Date Signed: 08/23/2018 12:27 PM Electronically Signed By:Melodie Ling RN
--- NOTE | 2018-08-23 12:54 | ASMTDCNOTE ---
Case Management Discharge Discharge Order Complete? Answers: Yes Patient to Obtain Answers: Other Notes: [facility] Medications Transportation Arranged Answers: Other Notes: [facility] will Pick (Date 08/23/2018 02:30 PM & Time) Faxed Final Orders Answers: Yes Agency/Facility Transfer Answers: Yes Report Printed & Faxed to Receiving Agency Discharge Comments Notes: D/w , final orders faxed. Gilmar at [facility] notified, RN to call report. [facility] only has [facility] wound vacs, pt will go with a wet to dry and have his dressing changed at their facility. Date Signed: 08/23/2018 12:52 PM Electronically Signed By:Melodie Ling RN
--- NOTE | 2018-08-23 13:03 | WOCRNPDOC ---
WOCRN Advanced Assessment Note - Skin Integrity Problem, Advanced Assess Left Lower Foot Surgical Wound/Incision Dressing Type: Black Vac Foam, White Vac Foam, Wound Vac Dressing Description: Clean/Dry, Intact Exudate Amount: Scant Exudate Color: Reddish/Yellow Exudate Characteristic(s): Serosanguinous Integumentary Issue Intervention: Dressing Changed, Dressing Initialed & Dated Carolann Wound Tissue: Macerated, Painful/Tender Carolann Wound Swelling: Mild Wound Bed Color: Red Wound Bed Constitution: Granulation Tissue, Smooth Tissue, Subcutaneous Fat Wound Edges: Attached, Well Defined Skin Integrity Problem Comment: Patient expected to discharge today but receiving facility uses a different brand of wound vac. [employer] wound vac dressing injected with 10ml topical lidocaine and dressing removed. Wound bed cleaned with NS and gauze and covered with NS moistened gauze, ABD, and kerlix. Patient tolerated the procedure well.
--- NOTE | 2018-08-31 09:22 | GDS ---
[f rep st] DISCHARGE SUMMARY DISCHARGE DIAGNOSES: 1. Peripheral vascular disease. 2. Gangrene of the left foot. CONSULTATIONS: None. PROCEDURES: 1. Left femoral-popliteal bypass with reverse saphenous vein graft. Intraoperative findings: The patient was found to have reasonably soft vessels above and below the popliteal artery. 2. Debridement and revision of a transmetatarsal amputation/wound VAC placement. Intraoperative findings: Patient was found to have a marked amount of gangrenous tissue on the posterior flap with a previous transmetatarsal amputation. HOSPITAL COURSE: This is a 48-year-old male with a history of nonhealing wound of his left foot. He was admitted to the hospital to undergo planned left femoral-popliteal bypass graft using saphenous vein. He also underwent debridement and revision of a transmetatarsal amputation with wound VAC placement. The patient tolerated the procedure well and there were no complications. His pain was initially managed with a MULTIGRAPHER and he was subsequently transitioned to oral pain medications. Throughout his hospital stay, he worked with Physical and Occupational therapy, however, had difficulty touching his left foot down due to pain. On postoperative day #3, the wound VAC was changed on his left foot. The patient's incisions remained CDI and his graft remained patent as evidenced by dopplerable pulses daily. The patient was on IV ertapenem for antibiotic coverage, and was transitioned to oral Bactrim prior to discharge. He was ultimately discharged to a residential facility on postoperative day #5. Prior to discharge, his Mcrae was discontinued and his pain was well controlled on oral pain medication. His wound VAC was changed prior to discharge as well. He was advised to follow up in our office in 1 week for a wound VAC change and wound check. It was discussed with him prior to discharge that he would eventually need a split-thickness skin graft from his thigh to his foot wound. The details surrounding this were discussed, including the need to be on bedrest for 5 days following skin graft placement. This was to be arranged as an outpatient. The patient was discharged in good condition and advised to call with fever, chills, or worsening symptoms. /[id number]/MODL MTDD
== END 2018-08-23 15:02 | DRG 254 ==
LOC: F3N 09:07 → F2N 12:55 → F3E 08-19 11:30
PROVIDERS: ADMIT Surgery; ATTEND Surgery
DX: I96 Gangrene, not elsewhere classified (principal); G89.29 Other chronic pain; Z87.891 Personal history of nicotine dependence
CPT/HCPCS: 97162-GP; 97530-GP; J1100; J1170; J1335; J1644; J1650; J2001; J2370; J2405; J2704; J2720; J3010

== ENCOUNTER 2018-09-13 13:06 | Observation (INO) | payer BC ==
[2018-09-13] MEDS ORDERED: THROMBIN (BOVINE) 20,000 UNIT SPRAY TP ONE (13:16)
[2018-09-13] MEDS ORDERED: MINERAL OIL 10 ML VIAL ONE (13:16)
[2018-09-13] MEDS ORDERED: BUPIVACAINE/EPI 0.5% 30 ML SDV ONE (13:16)
[2018-09-13] MEDS ORDERED: ceFAZolin 2 GM/DEXTROSE 100 ML IV ONE (13:36)
[2018-09-13] MEDS ORDERED: LR 1,000 ML IV ONE (13:59)
--- NOTE | 2018-09-13 15:57 | PDANEPAE ---
ANE Past Medical History - Cardiovascular History Hx Hypertension: No Hx Arrhythmias: No Hx Chest Pain: No Hx Coronary Artery / Peripheral Vascular Disease: Yes Hx CHF / Valvular Disease: No Hx Palpitations: No Cardiovascular History Comment: L popliteal artery stenosis s/p fem-pop bypass - Pulmonary History Hx COPD: No Hx Asthma/Reactive Airway Disease: No Hx Recent Upper Respiratory Infection: No Hx Oxygen in Use at Home: No Hx Sleep Apnea: No Sleep Apnea Screening Result - Last Documented: Negative Pulmonary History Comment: pt quit smoking 02/2018 - Neurologic History Hx Cerebrovascular Accident: No Hx Seizures: No Hx Dementia: No - Endocrine History Hx Diabetes: No - Renal History Hx Renal Disorders: No - Liver History Hx Hepatic Disorders: No - Neurological & Psychiatric Hx Hx Neurological and Psychiatric Disorders: No - Cancer History Hx Cancer: No - Congenital Disorder History Hx Congenital Disorders: No - GI History Hx Gastrointestinal Disorders: No - Other Health History Other Health History: DDD thoracic and lumbar spine. Sciatica. Chronic pain r/ t back, L foot pain. L foot ulcer s/t PVD, s/p multiple toe amputations, wound vac. Missing teeth. - Chronic Pain History Chronic Pain: Yes (DDD/lower back) - Surgical History Prior Surgeries: L femoral popliteal bypass graft 08/18/18. L great toe metatarsal amputation and wound vac placement 05/19/18. interventional angioplasty of LLE 09/20/2017. L 2nd-5th toes amputation 04/2018 ANE Review of Systems Review of Systems: - Exercise capacity METS (RN): 4 METS ANE Patient History - Allergies Allergies/Adverse Reactions: No Known Allergies Allergy (Unverified 09/13/18 14:47) - Home Medications Home Medications: Acetaminophen [Tylenol 325mg (*)] 650 mg PO BID@07,17 09/04/18 [Last Taken 09/13 08:00] Amiodarone HCl [Pacerone (*)] 100 mg PO DAILY@0700 09/04/18 [Last Taken Unknown] C/E/Zn/Cu/OM3/DHA/EPA/LUT/ZEAX [Preservision Areds 2 Softgel] 1 each PO DAILY@ 0700 09/04/18 [Last Taken Unknown] Calcium Carbonate [Tums 500MG (*)] 500 - 1,000 mg PO Q6H PRN 09/04/18 [Last Taken Unknown] Chlorhexidine Gluconate [Hibiclens (*)] 1 eunice TP DAILY@0500 09/04/18 [Last Taken Unknown] Cholecalciferol Vit D3 [Vitamin D3] 400 units PO DAILY@69909/04/18 [Last Taken Unknown] Hydrocortisone 1% [Hydrocortisone 1% cream (*)] 1 eunice TP BID 09/04/18 [Last Taken Unknown] Ibuprofen [Motrin (*)] 600 mg PO Q6HRS PRN 09/04/18 [Last Taken Unknown] Levothyroxine [Synthroid 125 mcg (*)] 125 mcg PO DAILY@69909/04/18 [Last Taken Unknown] Lutein 20 mg PO DAILY@69909/04/18 [Last Taken Unknown] Magnesium Hydroxide [Milk of Magnesia] 1,200 mg PO DAILY PRN 09/04/18 [Last Taken Unknown] Metoprolol Tartrate [Lopressor 50 mg (*)] 50 mg PO BID@09/04/18 [Last Taken Unknown] Mirtazapine 15 mg PO DAILY@69909/04/18 [Last Taken Unknown] Multivitamins [Multivitamin (*)] 1 each PO DAILY@69909/04/18 [Last Taken Unknown] Nitroglycerin [Nitrostat 0.4 mg (*)] 0.4 mg SL Q5M PRN 09/04/18 [Last Taken Unknown] Ondansetron [Ondansetron Odt] 4 mg PO Q6H PRN 09/04/18 [Last Taken Unknown] Polyethylene Glycol 3350 [Miralax 17 gm (*)] 17 gm PO DAILY@69909/04/18 [Last Taken Unknown] Tapentadol HCl [Nucynta 50 MG (*)] 50 mg PO Q6H PRN 09/04/18 [Last Taken Unknown ] guaiFENesin/DEXTROMETHORPHAN [Robitussin Dm Oral Liquid (*)] 5 ml PO Q6H PRN [Last Taken Unknown] - NPO status NPO Since - Liquids (Date): 09/12/18 NPO Since - Liquids (Time): 22:00 NPO Since - Solids (Date): 09/12/18 NPO Since - Solids (Time): 22:00 - Smoking Hx Smoking Status: Former smoker - Family Anes Hx Family Hx Anesthesia Complications: none ANE Labs/Vital Signs - Vital Signs Blood Pressure: 99/53 Heart Rate: 74 Respiratory Rate: 10 O2 Sat (%): 94 Height: 182.88 cm Weight: 72.575 kg ANE Physical Exam - Airway Mallampati Score: Class 2 Mouth exam: poor dentition - ASA Status ASA Status: III ANE Anesthesia Plan Anesthesia Plan: GA w LMA
[2018-09-13] MEDS ORDERED: CEFAZOLIN 2 GM/DEXTROSE/100 ML BAG IV ONE (16:08)
[2018-09-13] MEDS ORDERED: MIDAZOLAM 2 MG/2 ML VIAL ONE (16:40)
[2018-09-13] MEDS ORDERED: fentaNYL 100 MCG/2 ML INJ ONE ×2 (16:40→17:47)
[2018-09-13] MEDS ORDERED: PROPOFOL 200 MG/20 ML VIAL ONE (16:41)
[2018-09-13] MEDS ORDERED: ONDANSETRON 4 MG/2 ML VIAL ONE (16:46)
[2018-09-13] MEDS ORDERED: METOCLOPRAMIDE 10 MG/2 ML VIAL ONE (16:46)
--- NOTE | 2018-09-13 16:52 | POSTOPPROG ---
Post Op Note Date of Operation: 09/13/18 Surgeon: Jose Hallman Head Of Physics: Nani Levine Anesthesiologist: Francesco Caicedo Anesthesia: GET(General Endotracheal) Pre-op Diagnosis: open TMA wound Post-op Diagnosis: same Procedure: L TMA wound debridement c stsg and wound vac placement Findings: good wound granulation bed Inf/Abcess present in the surg proc area at time of surgery?: No EBL: Minimal Complications: none Bowel Protocol: N/A Clean Closure Performed: N/A
[2018-09-13] MEDS ORDERED: PHENYLEPHRINE HCL 100 MCG/ML SYR ONE (17:04)
[2018-09-13] MEDS ORDERED: LR 500 ML IV PRN (17:48)
[2018-09-13] MEDS ORDERED: NALOXONE HCL 0.4 MG/ML INJ IVP PRN (17:48)
--- NOTE | 2018-09-13 17:49 | POSTANESTH ---
Post Anesthetic Evaluation Cardiovascular Status: Similar to Pre-Op Cond Respiratory Status: Normal, Stable Level of Consciousness/Mental Status: Can Participate in Eval Pain Control: Adequate, Prn Tx Ordered Nausea/Vomiting Control: Adequate, Prn Tx Ordered Complications Possibly Related to Anesthesia: None Noted
[2018-09-13] MEDS: fentaNYL 100 MCG/2 ML INJ IVP PRN ×2 (17:50→18:09)
[2018-09-13] MEDS ORDERED: HYDROmorphONE/DILAUDID 1 MG/ML INJ ONE ×2 (17:50→18:31)
[2018-09-13] MEDS: HYDROmorphONE/DILAUDID 1 MG/ML INJ IVP PRN ×2 (17:53→18:15)
[2018-09-13] MEDS ORDERED: DIAZEPAM 10 MG/2 ML SYR IVP ONE (17:54)
[2018-09-13] MEDS ORDERED: DIAZEPAM 10 MG/2 ML SYR ONE (17:55)
[2018-09-13] MEDS ORDERED: MAGNESIUM HYDROXIDE 30 ML UDCUP PO PRN (18:18)
[2018-09-13] MEDS ORDERED: CALCIUM CARBONATE 500 MG CHEWABLE TAB PO PRN (18:18)
[2018-09-13] MEDS ORDERED: NITROGLYCERIN 0.4 MG BTL SL PRN (18:18)
[2018-09-13] MEDS ORDERED: IBUPROFEN 600 MG TAB PO PRN (18:18)
[2018-09-13] MEDS ORDERED: GUAIFENESIN/DM 10 ML UDCUP PO PRN (18:18)
[2018-09-13] MEDS ORDERED: ONDANSETRON 4 MG/2 ML VIAL IVP PRN (18:22)
[2018-09-13] MEDS ORDERED: HYDROmorphONE/DILAUDID 1 MG/ML INJ IVP PRN (18:22)
[2018-09-13] MEDS ORDERED: oxyCODONE IR 5 MG TAB ONE (18:32)
[2018-09-13] MEDS: oxyCODONE IR 5 MG TAB PO PRN ×2 (19:26→23:28)
[2018-09-13] MEDS: oxyCODONE CR 15 MG TAB PO SCH (20:30)
[2018-09-13] MEDS: HYDROCORTISONE 1% CREAM TP SCH (20:31)
[2018-09-14] MEDS: oxyCODONE IR 5 MG TAB PO PRN ×4 (05:09→23:08)
[2018-09-14] MEDS: AMIODARONE HCL 200 MG TAB PO SCH (06:12)
[2018-09-14] MEDS: PRESERVISION AREDS2 FORMULA EYE VIT 1 EACH PO SCH (06:12)
[2018-09-14] MEDS: LEVOTHYROXINE 125 MCG TAB PO SCH (06:12)
[2018-09-14] MEDS: POLYETHYLENE GLYCOL 3350 17 GM PKT PO SCH (06:13)
[2018-09-14] MEDS: ACETAMINOPHEN 325 MG TAB PO SCH ×2 (06:13→16:07)
[2018-09-14] MEDS: MIRTAZAPINE 15 MG TAB PO SCH (06:13)
[2018-09-14] MEDS: METOPROLOL TARTRATE 50 MG TAB PO SCH ×2 (06:13→16:06)
[2018-09-14] MEDS: Lutein [Lutein] 20 MG PO SCH (06:16)
[2018-09-14] MEDS: ASPIRIN 325 MG TAB PO SCH (08:40)
[2018-09-14] MEDS: oxyCODONE CR 15 MG TAB PO SCH ×2 (08:40→20:16)
[2018-09-14] MEDS: HYDROCORTISONE 1% CREAM TP SCH ×2 (09:49→20:17)
--- NOTE | 2018-09-14 10:10 | SOAPPROG ---
[facility] Progress Note Assessment/Plan: Assessment/plan: 48 y/o M with hx of PVD, s/p L fem-pop bypass surgery 2 weeks ago. Now s/p L TMA wound debridement and STSG from L thigh POD #1. Pt will need continuous wound vac for 5 days. DO NOT TAKE VAC OFF SUCTION. Discussed case with CM. Pt can go back to SNF, as long as they have a compatible wound vac system and we can transfer to different vac machine without breaking suction. Otherwise, pt will need to stay inpatient until we take vac off on Tuesday or Tuesday next week. No weightbearing on LLE. Good pedal pulses. Continue anticoagulants. S: No complaints. Pain well controlled. O: Alert Afebrile VSS RRR No increased WOB Abdomen soft, nontender LLE: wound vac with good suction over wound. Anterior thigh donor site is well dressed. +pedal pulses. 09/14/18 10:04 Objective: Vital Signs Temp Pulse Resp BP Pulse Ox 36.5 C 73 16 92/53 L 94 09/14/18 08:13 09/14/18 08:13 09/14/18 08:13 09/14/18 08:13 09/14/18 08:13 Laboratory Results 09/14/18 04:30 09/14/18 04:30 09/13/18 09/14/18 09/15/18 05:59 05:59 05:59 Intake Total 1250 Output Total 10 Balance 1240 ICD10 Worksheet Patient Problems: Problems Problem Status Onset Popliteal thrombosis Acute
--- NOTE | 2018-09-14 22:17 | GOP ---
[f rep st] OPERATIVE REPORT DATE OF OPERATION: 09/13/2018 SURGEON: Jose Hallman MD PREOPERATIVE DIAGNOSIS: Open transmetatarsal amputation with peripheral vascular disease. POSTOPERATIVE DIAGNOSIS: Open transmetatarsal amputation with peripheral vascular disease. PROCEDURE PERFORMED: Wound debridement and split thickness skin graft to left foot. FINDINGS: The patient was found to have good granulation tissue in the trans met wound. DESCRIPTION OF PROCEDURE: The patient was taken to the operating room where he received satisfactory general endotracheal anesthesia. He was placed in the supine position, prepped and draped in the [facility] sterile fashion. The stump was debrided with only minimal debridement was necessary. An 18 micr on split-thickness graft was obtained from the left thigh. It was meshed in a 1.5:1 ratio and then p laced over the stump. It measured 15 x 10 cm with juanita in place with the skin stapler and then dr essed with a wound VAC. The donor site was infiltrated with 0.5% Marcaine with epinephrine and dress ed with occlusive dressing. He tolerated the procedure well. He was taken to the recovery room in g ood condition. There were no complications. Blood loss negligible. /[id number]/MODL
[2018-09-15 05:20] LABS: PLATELET COUNT 179 10^3/uL (150-400)
[2018-09-15] MEDS: oxyCODONE IR 5 MG TAB PO PRN ×4 (06:14→20:08)
[2018-09-15] MEDS: PRESERVISION AREDS2 FORMULA EYE VIT 1 EACH PO SCH (06:14)
[2018-09-15] MEDS: AMIODARONE HCL 200 MG TAB PO SCH (06:14)
[2018-09-15] MEDS: LEVOTHYROXINE 125 MCG TAB PO SCH (06:14)
[2018-09-15] MEDS: MIRTAZAPINE 15 MG TAB PO SCH (06:14)
[2018-09-15] MEDS: POLYETHYLENE GLYCOL 3350 17 GM PKT PO SCH (06:14)
[2018-09-15] MEDS: ACETAMINOPHEN 325 MG TAB PO SCH ×2 (06:15→16:16)
[2018-09-15] MEDS: METOPROLOL TARTRATE 50 MG TAB PO SCH ×2 (06:19→16:16)
[2018-09-15] MEDS: Lutein [Lutein] 20 MG PO SCH (06:19)
[2018-09-15] MEDS: oxyCODONE CR 15 MG TAB PO SCH ×2 (08:12→22:45)
[2018-09-15] MEDS: ASPIRIN 325 MG TAB PO SCH (08:13)
[2018-09-15] MEDS: HYDROCORTISONE 1% CREAM TP SCH ×2 (08:50→22:53)
--- NOTE | 2018-09-15 14:49 | ASMTCMCOM ---
CM Note CM Note Notes: Spoke w/surgical LEHR ATTENDANT, pt rehabbing at [facility] in [place]. He is here for a surgery and now has a wound vac. Since he cannot get back to [facility] by noon, they have to put in for insurance auth again. May take a few days, LEHR ATTENDANT aware. CM called [facility] and spoke with Gilmar, he understands that wound vac to stay on suction for 5 days, dressing not to be changed or taken off. DC Plan: SNF/ [facility] Date Signed: 09/15/2018 02:47 PM Electronically Signed By:Melodie Ling RN
[2018-09-15] MEDS ORDERED: NS 1,000 ML IV SCH (21:15)
[2018-09-16] MEDS: oxyCODONE IR 5 MG TAB PO PRN ×3 (03:07→16:22)
[2018-09-16] MEDS: Lutein [Lutein] 20 MG PO SCH (07:15)
[2018-09-16] MEDS: oxyCODONE CR 15 MG TAB PO SCH ×2 (07:40→20:43)
[2018-09-16] MEDS: PRESERVISION AREDS2 FORMULA EYE VIT 1 EACH PO SCH (07:40)
[2018-09-16] MEDS: LEVOTHYROXINE 125 MCG TAB PO SCH (07:40)
[2018-09-16] MEDS: ASPIRIN 325 MG TAB PO SCH (07:40)
[2018-09-16] MEDS: AMIODARONE HCL 200 MG TAB PO SCH (07:41)
[2018-09-16] MEDS: ACETAMINOPHEN 325 MG TAB PO SCH ×2 (07:41→16:22)
[2018-09-16] MEDS: MIRTAZAPINE 15 MG TAB PO SCH (07:41)
[2018-09-16] MEDS: POLYETHYLENE GLYCOL 3350 17 GM PKT PO SCH (07:42)
[2018-09-16] MEDS: HYDROCORTISONE 1% CREAM TP SCH ×2 (07:43→20:43)
[2018-09-16] MEDS: METOPROLOL TARTRATE 50 MG TAB PO SCH ×2 (07:44→16:23)
--- NOTE | 2018-09-16 13:16 | SOAPPROG ---
SOAP Progress Note Assessment/Plan: Assessment: DOING WELL/AFEBRILE/VITAL SIGNS STABLE/EATING WELL WOUND OKAY/THIGH DRESSING CHANGE TODAY Plan: VAC CHANGE ON Tuesday09/16/18 13:15 Objective: Vital Signs Temp Pulse Resp BP Pulse Ox 36.5 C 80 16 113/65 97 09/16/18 11:49 09/16/18 11:49 09/16/18 11:49 09/16/18 11:49 09/16/18 11:49 Laboratory Results 09/15/18 04:45 09/14/18 04:30 09/15/18 09/16/18 09/17/18 05:59 05:59 05:59 Intake Total 500 Balance 500 ICD10 Worksheet Patient Problems: Problems Problem Status Onset Popliteal thrombosis Acute
--- NOTE | 2018-09-16 16:23 | ASMTCMCOM ---
CM Note CM Note Notes: Still no authorization from insurance informed pt, he will likely be here until Tuesday for vac change. He expresses understanding. DC Plan: SNF/ [facility] (Gilmar Tom [phone]) Date Signed: 09/16/2018 04:23 PM Electronically Signed By:Melodie Ling RN
[2018-09-17] MEDS: oxyCODONE IR 5 MG TAB PO PRN ×3 (01:14→23:48)
[2018-09-17] MEDS: ACETAMINOPHEN 325 MG TAB PO SCH ×2 (06:46→17:11)
[2018-09-17] MEDS: POLYETHYLENE GLYCOL 3350 17 GM PKT PO SCH (06:46)
[2018-09-17] MEDS: LEVOTHYROXINE 125 MCG TAB PO SCH (06:46)
[2018-09-17] MEDS: PRESERVISION AREDS2 FORMULA EYE VIT 1 EACH PO SCH (06:47)
[2018-09-17] MEDS: MIRTAZAPINE 15 MG TAB PO SCH (06:48)
[2018-09-17] MEDS: METOPROLOL TARTRATE 50 MG TAB PO SCH ×2 (08:36→17:11)
[2018-09-17] MEDS: AMIODARONE HCL 200 MG TAB PO SCH (08:56)
[2018-09-17] MEDS: ASPIRIN 325 MG TAB PO SCH (08:58)
[2018-09-17] MEDS: oxyCODONE CR 15 MG TAB PO SCH ×2 (08:58→21:49)
[2018-09-17] MEDS: Lutein [Lutein] 20 MG PO SCH (08:59)
[2018-09-17] MEDS: HYDROCORTISONE 1% CREAM TP SCH ×2 (08:59→22:02)
--- NOTE | 2018-09-17 12:11 | SOAPPROG ---
SOAP Progress Note Assessment/Plan: Assessment: DOING WELL/AFEBRILE/VITAL SIGNS STABLE/EATING WELL WOUND OKAY/THIGH DRESSING CHANGE TODAY Plan: VAC CHANGE ON Tuesday09/16/18 13:15 09/17/18 12:10 wounds ok/ afebrile/ no problems/ vac change in am Objective: Vital Signs Temp Pulse Resp BP Pulse Ox 37.0 C 73 16 99/58 L 94 09/17/18 11:37 09/17/18 11:37 09/17/18 11:37 09/17/18 11:37 09/17/18 11:37 Laboratory Results 09/15/18 04:45 09/14/18 04:30 09/16/18 09/17/18 09/18/18 05:59 05:59 05:59 Intake Total 1000 Balance 1000 ICD10 Worksheet Patient Problems: Problems Problem Status Onset Popliteal thrombosis Acute
--- NOTE | 2018-09-17 16:20 | ASMTCMCOM ---
CM Note CM Note Notes: CM discussed case with RN, planned for wound vac change tomorrow (Mon) and discharge to [facility] in [place]. CM to follow. D/C Plan: SNF/[facility] (Gilmar Tom [phone]) Date Signed: 09/17/2018 04:20 PM Electronically Signed By:Caryn Morales
[2018-09-18] MEDS: Lutein [Lutein] 20 MG PO SCH (05:33)
[2018-09-18] MEDS: METOPROLOL TARTRATE 50 MG TAB PO SCH ×2 (05:33→18:25)
[2018-09-18] MEDS: oxyCODONE IR 5 MG TAB PO PRN ×4 (06:18→19:35)
[2018-09-18] MEDS: AMIODARONE HCL 200 MG TAB PO SCH (06:19)
[2018-09-18] MEDS: ACETAMINOPHEN 325 MG TAB PO SCH ×2 (06:19→17:08)
[2018-09-18] MEDS: LEVOTHYROXINE 125 MCG TAB PO SCH (06:19)
[2018-09-18] MEDS: MIRTAZAPINE 15 MG TAB PO SCH (06:19)
[2018-09-18] MEDS: PRESERVISION AREDS2 FORMULA EYE VIT 1 EACH PO SCH (06:19)
[2018-09-18] MEDS: POLYETHYLENE GLYCOL 3350 17 GM PKT PO SCH (06:22)
[2018-09-18] MEDS: ASPIRIN 325 MG TAB PO SCH (07:59)
[2018-09-18] MEDS: oxyCODONE CR 15 MG TAB PO SCH ×2 (07:59→21:31)
--- NOTE | 2018-09-18 09:05 | SOAPPROG ---
SORG Progress Note Assessment/Plan: Assessment/plan: 48 y/o M with hx of PVD, s/p L fem-pop bypass surgery 2 weeks ago. Now s/p L TMA wound debridement and STSG from L thigh POD #5. Pt to go back to [facility] either today or tomorrow pending insurance auth. If goes today, will plan on taking wound vac down. If not, will take it down tomorrow. No weightbearing on LLE. Good pedal pulses. Continue anticoagulants. S: No complaints. Pain well controlled. O: Alert Afebrile VSS RRR No increased WOB Abdomen soft, nontender LLE: wound vac with good suction over wound. Anterior thigh donor site is well dressed. +pedal pulses on doppler. 09/18/18 09:02 Objective: Vital Signs Temp Pulse Resp BP Pulse Ox 36.5 C 68 16 95/54 L 94 09/18/18 08:00 09/18/18 08:00 09/18/18 08:00 09/18/18 08:00 09/18/18 08:00 Laboratory Results 09/15/18 04:45 09/14/18 04:30 09/17/18 09/18/18 09/19/18 05:59 05:59 05:59 Intake Total 1000 Balance 1000 ICD10 Worksheet Patient Problems: Problems Problem Status Onset Popliteal thrombosis Acute
[2018-09-18] MEDS: HYDROCORTISONE 1% CREAM TP SCH ×2 (09:08→19:44)
[2018-09-19] MEDS: oxyCODONE IR 5 MG TAB PO PRN ×3 (03:30→14:33)
[2018-09-19] MEDS: ACETAMINOPHEN 325 MG TAB PO SCH (07:38)
[2018-09-19] MEDS: oxyCODONE CR 15 MG TAB PO SCH (07:39)
[2018-09-19] MEDS: ASPIRIN 325 MG TAB PO SCH (07:42)
[2018-09-19] MEDS: Lutein [Lutein] 20 MG PO SCH (07:49)
[2018-09-19] MEDS: AMIODARONE HCL 200 MG TAB PO SCH (11:06)
[2018-09-19] MEDS: PRESERVISION AREDS2 FORMULA EYE VIT 1 EACH PO SCH (11:09)
[2018-09-19] MEDS: HYDROCORTISONE 1% CREAM TP SCH (11:10)
[2018-09-19] MEDS: LEVOTHYROXINE 125 MCG TAB PO SCH (11:12)
[2018-09-19] MEDS: METOPROLOL TARTRATE 50 MG TAB PO SCH (11:38)
[2018-09-19] MEDS: MIRTAZAPINE 15 MG TAB PO SCH (11:39)
[2018-09-19] MEDS: POLYETHYLENE GLYCOL 3350 17 GM PKT PO SCH (11:39)
[2018-09-19 12:52] VITALS: BP 96/69
--- NOTE | 2018-09-19 13:54 | ASMTCMCOM ---
CM Note CM Note Notes: CM called Gilmar at [facility] in [place] where pt was in rehab before this admission. Gilmar has not yet obtained insurance authorization from [employer], though states he submitted it and anticipated obtaining auth yesterday. Pt has been stable for discharge since the weekend and is waiting for authorization to discharge to SNF. EV[facility] called [facility] at [phone] and spoke with an agent who stated she had no record of authorization submitted and asked for NPI and MD name on the auth. CM does not have this information so contact number was given to Gilmar to follow up. Gilmar spoke with [employer] agent who said auth could take 10 - 15 days. Gianna Estrella notified and given Gilmar's contact number. As of today, PT is still recommending SNF. Pt lives alone in a condominium and has impaired mobility related to transmetatarsal amputation on 09/14. CM to follow. D/C Plan: [facility] Date Signed: 09/19/2018 01:54 PM Electronically Signed By:Gillian Gutierrez
--- NOTE | 2018-09-19 14:07 | SOAPPROG ---
SOAP Progress Note Assessment/Plan: Assessment/Plan: 48 Y M hx PVD, nonhealing TMA wound, fem pop, now s/p STSG c vac placement. Vac removed by Dr. Hallman. Good graft take. SNF arrangements made. D/c today, f/ u next week. 09/19/18 14:05 Objective: Vital Signs Temp Pulse Resp BP Pulse Ox 36.7 C 86 14 96/69 L 98 09/19/18 12:49 09/19/18 12:49 09/19/18 12:49 09/19/18 12:49 09/19/18 12:49 Laboratory Results 09/15/18 04:45 09/14/18 04:30 09/18/18 09/19/18 09/20/18 05:59 05:59 05:59 Intake Total 350 Balance 350 ICD10 Worksheet Patient Problems: Problems Problem Status Onset Popliteal thrombosis Acute
--- NOTE | 2018-09-19 14:13 | PDIAF ---
- Diagnosis Diagnosis: PAD, hx fem pop, nonhealing TMA, now s/p stsg (graft) Code Status: Full Code - Medication Management Discharge Medications: electronically signed and located in the Home Medication List. PICC Care - Routine: N/A - Orders Services needed: Registered Nurse, Physical Therapy, Occupational Therapy Isolation Type: None Diet Recommendation: no restrictions on diet Diet Texture: Regular Texture Diet Wound Care Instructions: Please keep TMA/graft site dry. Change dressing with a nonstick layer like xeroform and then dress with gauze and kerlix bid or more often PRN saturation. Please change donor site dressing on upper thigh also with a nonstick layer like xeroform or telfa or mepitel and then gauze and tape. Heel weight bearing on the left foot is ok as tolerated. Activity/Weight Bearing Restrictions: Please keep TMA/graft site dry. Change dressing with a nonstick layer like xeroform and then dress with gauze and kerlix bid or more often PRN saturation. Please change donor site dressing on upper thigh also with a nonstick layer like xeroform or telfa or mepitel and then gauze and tape. Heel weight bearing on the left foot is ok as tolerated. Additional Instructions: Please keep TMA/graft site dry. Change dressing with a nonstick layer like xeroform and then dress with gauze and kerlix bid or more often PRN saturation. Please change donor site dressing on upper thigh also with a nonstick layer like xeroform or telfa or mepitel and then gauze and tape. Heel weight bearing on the left foot is ok as tolerated. - Follow Up Care Current Providers and Referrals: Justice Otero MD [Primary Care Provider] - Jose Hallman MD [Medical Doctor] - follow up in 1 week
--- NOTE | 2018-09-19 14:38 | ASMTDCNOTE ---
Case Management Discharge Discharge Order Complete? Answers: Yes Patient to Obtain Answers: Other Notes: SNF Medications Transportation Arranged Answers: Other Notes: SNF Transport will Pick (Date 09/19/2018 12:00 AM & Time) Faxed Final Orders Answers: Yes Agency/Facility Transfer Answers: Yes Report Printed & Faxed to Receiving Agency Family Notified Answers: No Notes: pt refused Discharge Comments Notes: Pt to discharge to [facility]. RN given number for RN report. No further CM needs noted at this time. CM available should needs change. Date Signed: 09/19/2018 02:37 PM Electronically Signed By:Gillian Gutierrez
--- NOTE | 2018-09-19 14:39 | ASMTLACE ---
JENNYE Length of stay for Answers: 4-6 days current admission Acuity / Level of Answers: Yes Care: Did the patient have an inpatient admission? Comorbidities - select Answers: Coronary Artery Disease all that apply Opioid dependence / Chronic pain Peripheral vascular disease # of Emergency department Answers: 0 visits in the last 6 months Score: 14 Date Signed: 09/19/2018 02:39 PM Electronically Signed By:Gillian Gutierrez
--- NOTE | 2018-09-19 14:46 | ASDISCHSUM ---
Discharge Information Plan Status:SNF Medically Cleared to Leave:09/19/2018 Discharge Date:09/19/2018 CM D/C Disposition:[facility] ADT D/C Disposition:Home, Routine, Self-Care Projected Discharge Date:09/15/2018 11:00 AM Transportation at D/C:Wheelchair Van Discharge Delay Reason: Follow-Up Date:09/15/2018 11:00 AM Discharge Slot: Final Diagnosis:foot necrosis Placement Information Referral Type:*Chcf/SNF Referral ID:[id number] Provider Name:Eulogio doss [facility] Address 1:[address] Address 2: City:[place] Selection Factors: State:[place] Patient Contact Information Contact Name:CHANDLER Relationship: Address: Work Phone: City: [facility] Phone: [facility] Code: Email: Financial Information Financial Class:BCOP Primary Plan Desc: OUT OF STATE [facility] Primary Plan Number:[id number] Secondary Plan Desc: Secondary Plan Number: Assessment Information LACE LACE Length of stay for Answers: 4-6 days current admission Acuity / Level of Answers: Yes Care: Did the patient have an inpatient admission? Comorbidities - select Answers: Coronary Artery Disease all that apply Opioid dependence / Chronic pain Peripheral vascular disease # of Emergency department Answers: 0 visits in the last 6 months Score: 14 Date Signed: 09/19/2018 02:39 PM Electronically Signed By:Gillian Gutierrez [facility] CM Progress Note CM Note CM Note Notes: Spoke w/surgical REAL ESTATE MANAGER, pt rehabbing at [facility] in [place]. He is here for a surgery and now has a wound vac. Since he cannot get back to [facility] by noon, they have to put in for insurance auth again. May take a few days, REAL ESTATE MANAGER aware. CM called [facility] and spoke with Gilmar, he understands that wound vac to stay on suction for 5 days, dressing not to be changed or taken off. DC Plan: [facility]/ [facility] Date Signed: 09/15/2018 02:47 PM Electronically Signed By:Melodie Ling RN [facility] CM Progress Note CM Note CM Note Notes: Still no authorization from insurance informed pt, he will likely be here until Tuesday for vac change. He expresses understanding. DC Plan: [facility]/ [facility] (Gilmar Tom [phone]) Date Signed: 09/16/2018 04:23 PM Electronically Signed By:Melodie Ling RN [facility] CM Progress Note CM Note CM Note Notes: CM discussed case with SAMUEL, planned for wound vac change tomorrow (Tue) and discharge to [facility] in [place]. CM to follow. D/C Plan: [facility] (Gilmar Tom [phone]) Date Signed: 09/17/2018 04:20 PM Electronically Signed By:Caryn Morales [facility] CM Progress Note CM Note CM Note Notes: CM called Gilmar at [facility] in [place] where pt was in rehab before this admission. Gilmar has not yet obtained insurance authorization from [employer], though states he submitted it and anticipated obtaining auth yesterday. Pt has been stable for discharge since the weekend and is waiting for authorization to discharge to SNF. CM called [facility] at [phone] and spoke with an agent who stated she had no record of authorization submitted and asked for NPI and MD name on the auth. CM does not have this information so contact number was given to Gilmar to follow up. Gilmar spoke with [employer] agent who said auth could take 10 - 15 days. Gianna Estrella notified and given Gilmar's contact number. As of today, PT is still recommending SNF. [facility] and has impaired mobility related to transmetatarsal amputation on 09/14. CM to follow. D/C Plan: [facility] Date Signed: 09/19/2018 01:54 PM Electronically Signed By:Gillian Gutierrez Case Management Discharge Plan Note Case Management Discharge Discharge Order Complete? Answers: Yes Patient to Obtain Answers: Other Notes: SNF Medications Transportation Arranged Answers: Other Notes: SNF Transport will Pick (Date 09/19/2018 12:00 AM & Time) Faxed Final Orders Answers: Yes Agency/Facility Transfer Answers: Yes Report Printed & Faxed to Receiving Agency Family Notified Answers: No Notes: pt refused Discharge Comments Notes: Pt to discharge to [facility]. RN given number for RN report. No further CM needs noted at this time. CM available should needs change. Date Signed: 09/19/2018 02:37 PM Electronically Signed By:Gillian Gutierrez [facility] CM Progress Note CM Note CM Note Notes: ADDENDUM: Gilmar from [facility] and pt confirmed that the WC in the room belongs to [facility] and should go with pt in transport. SAMUEL and sriram notified. Date Signed: 09/19/2018 02:45 PM Electronically Signed By:Gillian Gutierrez Intervention Information
--- NOTE | 2018-09-19 14:46 | ASMTCMCOM ---
CM Note CM Note Notes: ADDENDUM: Gilmar from [employer] and pt confirmed that the WC in the room belongs to [facility] and should go with pt in transport. RN and aide notified. Date Signed: 09/19/2018 02:45 PM Electronically Signed By:Gillian Gutierrez
== END 2018-09-19 16:48 | disposition home or self-care (01) ==
LOC: F3E 13:06
PROVIDERS: ADMIT Surgery; ATTEND Surgery
PROC: 0HRNX74 Replacement of Left Foot Skin with Autologous Tissue Substitute, Partial Thickness, External Approach (ICD-10-PCS; principal; 2018-09-13 14:15)
DX: Z89.422 Acquired absence of other left toe(s) (principal); S91.102D Unspecified open wound of left great toe without damage to nail, subsequent encounter; I73.9 Peripheral vascular disease, unspecified
CPT/HCPCS: 15120; 97110; 97116; 97161; G0378; J0690; J1170; J2250; J2370; J2405; J2704; J2765; J3010; J3360